=== PATIENT | female | born 1970 ===

== ENCOUNTER 2021-11-10 12:57 | Emergency (ER) | payer SELFPAY ==
--- NOTE | 2021-11-10 13:13 | PC.NURSE ---
wheeled pt out of ER waiting room to his car at [id number]. Pt got in the front passenger seat of car. Car left parking lot and property.
== END 2021-11-10 13:13 | disposition left against medical advice (07) ==
DX: Z53.21 Procedure and treatment not carried out due to patient leaving prior to being seen by health care provider (principal)
CPT/HCPCS: 99199